=== PATIENT | male | born 1980 | race Two or more races ===

== ENCOUNTER 2018-05-31 12:31 | Emergency (ER) | payer OTHER ==
[2018-05-31] MEDS ORDERED: PROPARACAINE/FLUORESCEIN SOD 5 ML OPHT.BTL OP ONE (12:52)
[2018-05-31] MEDS ORDERED: PROPARACAINE 0.5% 15 ML OPHT DROP ONE (13:17)
[2018-05-31] MEDS ORDERED: FLUORESCEIN SODIUM 1 MG STRIP OP ONE ×2 (13:17→13:20)
[2018-05-31] MEDS ORDERED: PROPARACAINE 0.5% 15 ML OPHT DROP OP ONE (13:19)
[2018-05-31] MEDS ORDERED: ERYTHROMYCIN 0.5% 1 GM OPHT.OINT EACHEYE ONE (13:29)
[2018-05-31] MEDS ORDERED: TDAP ADULT 0.5 ML INJ (BOOSTRIX) IM ONE (13:31)
--- NOTE | 2018-05-31 13:33 | EDPHY ---
General Time Seen by Provider: 05/31/18 13:31 Narrative: CHIEF COMPLAINT: Something in my eye HISTORY OF PRESENT ILLNESS: Patient presents with complaints of "something in my eye." He reports throwing some trash into a dumpster yesterday afternoon. He says that "something fell out and hit me in the right eye."He denies any high velocity injury. He was not wearing goggles. He says he felt that it scratched him at that time. Minimal complaints over the evening but awoke this morning with increasing pain , redness and feeling that something is in the right eye. He has no visual disturbance. No headache. No bleeding near or from the right eye. Tetanus is in question. No other associated complaints or modifying factors. TIME OF INJURY: Yesterday afternoon TETANUS STATUS: Uncertain MEDICAL/SURGICAL/SOCIAL HISTORY: Uncomplicated medical history. Daily smoker of cigarettes. Lives here independently. Recently moved from [place] REVIEW OF SYSTEMS: Ten systems reviewed and are negative unless otherwise noted in the HPI EXAMINATION General Appearance: Alert, no distress Head: normocephalic, atraumatic ENT: Pupils equal round reactive with no abnormal appearance of the pupil. There is mild injection of the right conjunctiva. No foreign body by direct examination or slit-lamp examination. There is fluorescein uptake on the right eye at the 3 o'clock, 6 o'clock and 10 o'clock positions. I do not appreciate any foreign body or rust ring. No periorbital cellulitis. EOMs are symmetric and painless. Cardiovascular: Pulses normal throughout. Brisk cap refill Neurological: A&O, sensory symmetric, strength symmetric Skin: Warm and dry, no rash Extremities: Nontender, no pedal edema DIFFERENTIAL DIAGNOSES: Including but not limited to conjunctivitis, corneal abrasion, conjunctival abrasion, foreign body, globe injury MDM: 1:30 p.m. Acute corneal abrasion to the right eye in 3 locations, 3 o'clock, 6 o'clock and 10 o'clock. There is no foreign body. No rust ring. No hyphema. Normal appearing pupil without teardrop appearance or signs of globe injury or rupture. Visual rodríguez by confrontation intact. He has no signs of orbital periorbital cellulitis. We discussed erythromycin ointment and follow up with worker's compensation [facility] for definitive care. We discussed rest, ED precautions. He is comfortable this plan and discharged home stable condition. HPI, physical exam in MDM performed using the hospital's certified Czech pediatric speech language pathologist at bedside in patient's room. SUPERVISION: This patient was independently evaluated without direct involvement of or examination by the attending physician. ED Precautions: Worsening pain. Erythema, edema, cyanosis, pallor, paresthesia or anesthesia. - History Smoking Status: Current every day smoker - Objective Vital Signs: Initial Vital Signs Temperature (C) 98.1 F 05/31/18 12:35 Heart Rate 94 05/31/18 12:35 Respiratory Rate 16 05/31/18 12:35 Blood Pressure 114/80 05/31/18 12:35 O2 Sat (%) 95 05/31/18 12:35 O2 Delivery Mode Room Air Allergies/Adverse Reactions: No Known Allergies Allergy (Unverified 05/31/18 12:35) Home Medications: Medication Instructions Recorded Erythromycin 0.5% 1 linda OP TID #1 opht.oint 05/31/18 Medications Given: Discontinued Medications Diphtheria/Tetanus/Acell Pertussis (Boostrix) 0.5 ml IM .ONCE ONE Stop: 05/31/18 13:32 Last Admin: 05/31/18 13:41 Dose: 0.5 ml Erythromycin (Erythromycin 0.5%) 1 linda EACHEYE ONCE ONE Stop: 05/31/18 13:30 Last Admin: 05/31/18 13:41 Dose: 1 linda Fluorescein Sodium (Bioglo) 1 mg OP EDNOW ONE Stop: 05/31/18 13:21 Last Admin: 05/31/18 13:21 Dose: Not Given Proparacaine HCl (Alcaine 0.5%) 1 drops OP EDNOW ONE Stop: 05/31/18 13:20 Last Admin: 05/31/18 13:21 Dose: Not Given Proparacaine HCl/Fluorescein Sodium (Flucaine) 2 drops OP EDNOW ONE Stop: 05/31/18 12:53 Last Admin: 05/31/18 13:20 Dose: Not Given Departure - Departure Disposition: Home, Routine, Self-Care Clinical Impression: Corneal abrasion, right Qualifiers: Encounter type: initial encounter Qualified Code(s): S05.01XA - Injury of conjunctiva and corneal abrasion without foreign body, right eye, initial encounter Condition: Good Instructions: Corneal Abrasion (ED) Additional Instructions: 1. Erythromycin ointment to the eye 3 times daily for 5-7 days 2. freezing room [facility] for further care 3. Follow up with Ophthalmology tomorrow if you do not have significant improvement in her symptoms 4. ED precautions for any worsening symptoms, redness, double vision, painful movement of the eye, fever 1. Crema Erythomycin al emmy 3 veces sl saida por 5-7 maxwell. 2. Contacte a la clinica de compensaciones a los trabajadores para cuidado mas a fondo. 3. Segiuimiento con el Oftalmolog[facility] si no tiene mejoramiento significativo en los sintomas 4. Precauciones del Departamento de Emergencias si los sintomas empeoran, enrrojecimiento, vision doble, movimiento doloroso del emmy, fiebre. Referrals: Mona Rodriguez MD [Non Staff Provider (MD)] - As per Instructions Stand Alone Forms: Work Comp Follow Up Prescriptions: Erythromycin 0.5% 1 linda OP TID #1 opht.oint Print Language: Czech
[2018-05-31 13:55] VITALS: BP 102/76
== END 2018-05-31 14:05 | disposition home or self-care (01) ==
PROC: 3E00X4Z Introduction of Serum, Toxoid and Vaccine into Skin and Mucous Membranes, External Approach (ICD-10-PCS; principal; 2018-05-31)
DX: S05.01XA Injury of conjunctiva and corneal abrasion without foreign body, right eye, initial encounter (principal); W22.8XXA Striking against or struck by other objects, initial encounter; Y99.0 Civilian activity done for income or pay; F17.210 Nicotine dependence, cigarettes, uncomplicated